=== PATIENT | male | born 1965 | race Caucasian/White ===

== ENCOUNTER 2024-08-22 19:23 | Emergency (ER) | payer BC ==
[2024-08-22] MEDS: Tetracaine HCl/PF 0.5% 4 ML Bottle EYEBOTH ONE (20:25)
[2024-08-22] MEDS: Fluorescein 1 MG Ophth Strip EYEBOTH ONE (21:47)
== END 2024-08-22 23:46 | disposition home or self-care (01) ==
LOC: MW.ED 19:23
DX: T59.811A Toxic effect of smoke, accidental (unintentional), initial encounter (principal); S05.01XA Injury of conjunctiva and corneal abrasion without foreign body, right eye, initial encounter; S05.02XA Injury of conjunctiva and corneal abrasion without foreign body, left eye, initial encounter; Y92.79 Other farm location as the place of occurrence of the external cause
CPT/HCPCS: 71045; 71045-26; 99283; 99284; J3490